=== PATIENT | female | born 1985 | race Hispanic/Latino ===

== ENCOUNTER 2020-10-22 09:13 | Outpatient (CLI) | payer BC | END 2020-10-22 09:14 | disposition home or self-care (01) | LOC: CSHCT 09:13 | PROVIDERS: ATTEND Family Medicine | DX: K43.2 Incisional hernia without obstruction or gangrene (principal); K42.9 Umbilical hernia without obstruction or gangrene; N83.291 Other ovarian cyst, right side | CPT/HCPCS: 74177 ==